=== PATIENT | female | born 2000 | race Hispanic/Latino ===

== ENCOUNTER 2020-11-07 01:25 | Emergency (ER) | payer OTHER ==
[2020-11-07] MEDS ORDERED: LIDOCAINE HCL 2% VISCOUS 15 ML UDCUP ONE (02:57)
[2020-11-07] MEDS ORDERED: FAMOTIDINE/PF 20 MG/2 ML VIAL IV ONE (02:57)
[2020-11-07] MEDS ORDERED: MAG HYDROX/AL HYDROX/SIMETH ES 30 ML SUSP UDCUP ONE (02:57)
[2020-11-07] MEDS ORDERED: FAMOTIDINE 20MG TAB 20 MG TAB ONE (02:59)
== END 2020-11-07 04:28 | disposition home or self-care (01) ==
LOC: EDH 01:25
DX: K29.00 Acute gastritis without bleeding (principal)
CPT/HCPCS: 93005; J3490